=== PATIENT | male | born 1970 | race Caucasian/White ===

== ENCOUNTER 2020-10-15 22:42 | Emergency (ER) | payer OTHER ==
[~2020-10-15] VITALS: Ht 190.5 cm; Wt 129.3 kg
[2020-10-16 03:13] VITALS: BP 143/81
[2020-10-16] MEDS ORDERED: cefTRIAXone SOD 1,000 MG VL IM ONE (03:45)
[2020-10-16] MEDS ORDERED: ONDANSETRON ODT 4 MG TAB PO ONE (03:45)
[2020-10-16] MEDS ORDERED: ACETAMINOPHEN/CODEINE#3 (300/30mg) TAB PO ONE (03:45)
[2020-10-16] MEDS ORDERED: DOXYCYCLINE 100 MG TAB/CAP PO ONE (04:15)
[2020-10-16] MEDS ORDERED: cefTRIAXone 1GM/50ML D5W 50 ML IV ONE (04:15)
[2020-10-16 05:09] LABS: Basophils # (auto) 0 10 ^3/uL (0-0.2); Basophils % (auto) 0.1 % (0.0-2.0); Eosinophils # (auto) 0 10 ^3/uL (0-0.8); Hematocrit 48.2 % (41.0-53.0); Hemoglobin 16.8 g/dL (13.5-17.5); Lymphocytes # (auto) 0.7 10 ^3/uL (0.4-5.4); Lymphocytes % (auto) 21.4 % (10.0-50.0); Mean Corpuscular Hemoglobin 31.7 pg (28.0-32.0); Mean Corpuscular Hgb Conc. 34.9 g/dL (32.0-36.0); Monocytes # (auto) 0.5 10 ^3/uL (0-1.3); Monocytes % (auto) 15.7 % (0.0-12.0); Neutrophils # (auto) 2.1 10 ^3/uL (1.6-8.6); Neutrophils % (auto) 62.8 % (37.0-80.0); Nucleated Red Blood Cells % 0.3 %; Red Blood Cells 5.29 10^6/uL (4.5-5.90); Red Cell Distribution Width 12.7 % (11.8-14.3); White Blood Cell 3.4 10^3/uL (4.4-10.8)
[2020-10-16 05:32] LABS: Calcium 8.2 mg/dL (8.5-10.1); Potassium 3.9 mmol/L (3.5-5.1)
[2020-10-16 05:35] LABS: BUN/Creatinine Ratio 10.2; Bilirubin, Total 1.6 mg/dL (0.2-1.0); Total Protein 7.6 g/dL (6.4-8.2)
[2020-10-16] MEDS ORDERED: AZITHROMYCIN 500MG/ 250ML 250 ML IV ONE (07:30)
[2020-10-16] MEDS ORDERED: DexAMETHasone SOD PHOS 10MG/1ML VIAL INJ IV ONE (07:30)
== END 2020-10-16 09:01 | disposition home or self-care (01) ==
LOC: ER 22:43
DX: U07.1 COVID-19 (principal); R51.9 Headache, unspecified; I10 Essential (primary) hypertension
CPT/HCPCS: 36415; 70450; 71045; 80053; 84484; 85025; 85379; 87426; 96365; 96375; 99285; J0456; J0696; J1100; J7030; Q0162

== ENCOUNTER 2025-01-15 07:54 | Emergency (ER) | payer OTHER ==
[~2025-01-15] VITALS: Ht 190.5 cm; Wt 137.2 kg
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
[2025-01-15 08:55] VITALS: BP 148/92; PULSE 99; RESP 18; TEMP 98.1; O2SAT 97
--- NOTE | 2025-01-15 09:02 | DVH ---
PROCEDURE: Left wrist radiographs. INDICATION: FALL TECHNIQUE: 3 views of the left wrist were obtained. COMPARISON: None FINDINGS: There is no evidence of fracture or dislocation. Joint spaces are maintained. The soft tissues are unremarkable. IMPRESSION: 1. No fracture or dislocation.
--- NOTE | 2025-01-15 09:04 | DVH ---
PROCEDURE: Left elbow radiographs. INDICATION: FALL TECHNIQUE: 3 views of the left elbow were obtained. COMPARISON: None FINDINGS: There is lucency associated with a cortical step-off in the anterior head of the radius best seen on the lateral view. There is an osteophyte arising from the coronoid process. No dislocation. There is an elbow joint effusion. IMPRESSION: 1. Findings suspicious for nondisplaced fracture in the radial head. CT may be obtained for further evaluation. 2. Joint effusion.
== END 2025-01-15 09:25 | disposition home or self-care (01) ==
LOC: ER 07:56
DX: S52.125A Nondisplaced fracture of head of left radius, initial encounter for closed fracture (principal); S63.502A Unspecified sprain of left wrist, initial encounter; I10 Essential (primary) hypertension; W01.0XXA Fall on same level from slipping, tripping and stumbling without subsequent striking against object, initial encounter; Y93.89 Activity, other specified; Y92.89 Other specified places as the place of occurrence of the external cause; Y99.8 Other external cause status
CPT/HCPCS: 29105; 73080; 73110